=== PATIENT | female | born 1935 | race Caucasian/White ===

== ENCOUNTER 2020-08-18 14:17 | Emergency (ER) | payer BC ==
[~2020-08-18] VITALS: Ht 175.3 cm; Wt 88.9 kg
[2020-08-18] MEDS ORDERED: LIPITOR10 MG PO (14:34)
[2020-08-18] MEDS ORDERED: LISINOPRIL20 MG PO (14:35)
[2020-08-18] MEDS ORDERED: GLUCOPHAGE1000 MG PO (14:35)
[2020-08-18] MEDS ORDERED: HYDROCODON-ACE1 EA10 PO (16:26)
[2020-08-18] MEDS ORDERED: ULTRA-LIGHT RO1 EACH MISC (16:29)
== END 2020-08-18 17:08 | disposition home or self-care (01) ==
LOC: ED 14:17
DX: S82.044A Nondisplaced comminuted fracture of right patella, initial encounter for closed fracture (principal); W22.8XXA Striking against or struck by other objects, initial encounter; I10 Essential (primary) hypertension; E78.00 Pure hypercholesterolemia, unspecified; E11.9 Type 2 diabetes mellitus without complications; Z88.6 Allergy status to analgesic agent; Z79.899 Other long term (current) drug therapy; Z79.84 Long term (current) use of oral hypoglycemic drugs
CPT/HCPCS: 70450; 73560; 73700; 99284-25